=== PATIENT | female | born 1985 | race Caucasian/White ===

== ENCOUNTER 2021-02-06 05:56 | Inpatient (IN) ==
[2021-02-06] MEDS ORDERED: Famotidine 20 MG/2 ML VIAL IVP PRN (06:24)
[2021-02-06] MEDS ORDERED: *HR* Nalbuphine 10 MG/ML AMPUL IV PRN (06:24)
[2021-02-06] MEDS ORDERED: Naloxone 0.4 MG/ML INJ IVP PRN (06:24)
[2021-02-06] MEDS ORDERED: Lidocaine 1% 20 ML MDV ID PRN (06:24)
[2021-02-06] MEDS ORDERED: miSOPROStoL 25 MCG TABLET PO PRN (06:24)
[2021-02-06] MEDS ORDERED: Ondansetron 4 MG/2 ML VIAL IVP PRN (06:24)
[2021-02-06] MEDS ORDERED: Azithromycin 500 MG in 0.9 % Sodium Chloride 250 ML IVPB PRN (06:24)
[2021-02-06] MEDS ORDERED: Metoclopramide 10 MG/2 ML VIAL IVP PRN (06:24)
[2021-02-06] MEDS ORDERED: *HR* FentaNYL (PF) 100 MCG/2 ML VIAL IVP PRN (06:24)
[2021-02-06] MEDS ORDERED: D5% in Lactated Ringers 1,000 ML IVC SCH (06:30)
[2021-02-06 06:58] LABS: Basophils % 0.4 %; Eosinophils # 0.3 K/mcL (0.0-0.6); Eosinophils % 3.2 %; Hematocrit 40.5 % (35.3-44.9); Hemoglobin 14.1 g/dL (11.5-15.4); Immature Granulocytes % 1.1 % (0-4); Lymphocytes # 2.1 K/mcL (0.6-4.6); Lymphocytes % 21.7 %; Mean Corpuscular HGB Conc 34.8 g/dL (31.6-35.5); Mean Corpuscular Hemoglobin 31.5 pg (28.0-33.3); Mean Corpuscular Volume 90.4 fL (83.0-100.0); Mean Platelet Volume 9.9 fL (9.4-12.4); Monocytes # 0.9 K/mcL (0.0-1.3); Monocytes % 8.9 %; Neutrophils # 6.2 K/mcL (1.6-8.9); Platelet Count 172 K/mcL (140-400); Red Blood Count 4.48 M/mcL (3.82-4.97); Red Cell Distribution Width 13.1 % (11.5-14.5); Segmented Neutrophils % 64.7 %; White Blood Count 9.6 K/mcL (4.3-11.1)
[2021-02-06] MEDS ORDERED: EPHEDrine 50 MG/ML VIAL IVP PRN (07:21)
[2021-02-06] MEDS ORDERED: Epidural Premix (fent/bupiv) 110 ML EP SCH (07:30)
[2021-02-06] MEDS ORDERED: Ringers Solution, Lactated 1,000 ML ONE ×2 (07:46→09:07)
[2021-02-06 08:38] LABS: Amphetamine Screen,Urine Negative ng/mL (Cutoff=1000); Barbiturate Screen,Urine Negative ng/mL (Cutoff=200); Benzodiazepines Screen,Urine Negative ng/mL (Cutoff=200); Cannabinoid Screen,Urine Negative ng/mL (Cutoff = 50); Cocaine Screen,Urine Negative ng/mL (Cutoff= 300); Opiate Screen,Urine Negative ng/mL (Cutoff=300); Phencyclidine Screen,Urine Negative ng/mL (Cutoff=25)
[2021-02-06] MEDS ORDERED: Ringers Solution, Lactated 1,000 ML IVC SCH (09:30)
[2021-02-06] MEDS ORDERED: Benzocaine/Menthol 56 GM AEROSOL SPRAY TP PRN (15:51)
[2021-02-06] MEDS ORDERED: Ondansetron ODT 4 MG TAB.RAPDIS SL PRN (15:51)
[2021-02-06] MEDS ORDERED: Acetaminophen 325 MG TABLET PO SCH (15:51)
[2021-02-06] MEDS ORDERED: Lanolin 7 G OINT...G. TP PRN (15:51)
[2021-02-06] MEDS ORDERED: Rho Immune Globulin 1,500 UNIT SYRINGE IM PRN (15:51)
[2021-02-06] MEDS ORDERED: Oxytocin 20 units/ LR 1000 mL 20 UNIT/1,000 ML BAG IVC SCH (15:51)
[2021-02-06] MEDS: Ibuprofen 600 MG TABLET PO SCH (20:09)
[2021-02-07] MEDS: Ibuprofen 600 MG TABLET PO SCH ×2 (03:35→09:43)
[2021-02-07 04:10] LABS: Basophils % 0.4 %; Eosinophils # 0.4 K/mcL (0.0-0.6); Eosinophils % 3.1 %; Hematocrit 34.9 % (35.3-44.9); Immature Granulocytes % 0.6 % (0-4); Lymphocytes # 2.7 K/mcL (0.6-4.6); Lymphocytes % 23.7 %; Mean Corpuscular Hemoglobin 32.5 pg (28.0-33.3); Mean Corpuscular Volume 93.1 fL (83.0-100.0); Mean Platelet Volume 10.1 fL (9.4-12.4); Monocytes % 9.1 %; Neutrophils # 7.2 K/mcL (1.6-8.9); Platelet Count 159 K/mcL (140-400); Red Blood Count 3.75 M/mcL (3.82-4.97); Red Cell Distribution Width 13.2 % (11.5-14.5); Segmented Neutrophils % 63.1 %; White Blood Count 11.3 K/mcL (4.3-11.1)
[2021-02-07 04:15] LABS: Hemoglobin 12.2 g/dL (11.5-15.4)
[2021-02-07 07:28] VITALS: BP 106/73; PULSE 86; TEMP 98; O2SAT 98
[2021-02-07] MEDS ORDERED: Prenatal Vit/FA 1 EACH TABLET PO SCH (09:00)
== END 2021-02-07 15:15 | disposition home or self-care (01) | DRG 807 ==
LOC: 1NENULAB 05:56 → 1NENUOBS 17:12
PROVIDERS: ADMIT Obstetrics & Gynecology; ATTEND Obstetrics & Gynecology